=== PATIENT | male | born 1940 | race Caucasian/White ===

== ENCOUNTER 2018-01-03 10:20 | Emergency (ER) | payer MEDICARE, BC ==
[~2018-01-03] VITALS: Ht 160 cm; Wt 74.8 kg
--- NOTE | 2018-01-03 10:31 | NUR ---
PT IS IN ROOM #1B. DR GONZALES EVALUATED THE PT.
[2018-01-03] MEDS ORDERED: HYDROCODONE/APAP 5-325MG TABLET ONE (10:35)
[2018-01-03] MEDS: HYDROCODONE/APAP 5-325MG TABLET PO ONE (10:36)
--- NOTE | 2018-01-03 11:52 | NUR ---
PT WAS D/C TO HOME. D/C INSTRUCTIONS GIVEN TO THE PT.
[2018-01-03 11:53] VITALS: BP 152/81
== END 2018-01-03 11:54 | disposition home or self-care (01) ==
LOC: ER 10:20
DX: S32.029A Unspecified fracture of second lumbar vertebra, initial encounter for closed fracture (principal); I10 Essential (primary) hypertension; V49.9XXA Car occupant (driver) (passenger) injured in unspecified traffic accident, initial encounter; Y93.89 Activity, other specified; Y92.410 Unspecified street and highway as the place of occurrence of the external cause; Y99.8 Other external cause status
CPT/HCPCS: 71045; 74176; 99284; A4663